=== PATIENT | female | born 1950 | race Caucasian/White ===

== ENCOUNTER 2016-10-30 07:04 | Day surgery (SDC) | payer OTHER, MEDICARE ==
[2016-10-29 11:34] VITALS: BMI 24.1
--- NOTE | 2016-10-29 15:01 | HP ---
- Patient Scheduled date of Surgery: 10/30/16 Scheduled Surgical Procedure: Phacoemulsification and cataract extraction with PCIOL Affected Eye: Left Chief Complaint (Indication for surgery): Decreased vision affecting ADLs - Ocular History Other Eye History: Other (narrow angles, OHTN, ADDIS) Eye Medications: alphagan p 0/2, vigamox 0/3, restasis 2/2, at prn Previous Eye Surgery: s/p LPI OU - Medical History Illnesses: Hypertension, Other (hypothyroid, Ovarian CA s/p [facility]) Current Medications: Ambulatory Orders Calcium Carbonate [Calcium] 500 mg PO DAILY 10/29/16 Cholecalciferol (Vitamin D3) [Vitamin D3 -] 400 unit PO DAILY 10/29/16 Levothyroxine [Synthroid -] 50 mcg PO DAILY 10/29/16 Lisinopril 10 mg PO DAILY 10/29/16 Magnesium Oxide [Magnesium] 500 mg PO DAILY 10/29/16 Ranitidine [Zantac -] 150 mg PO DAILY 10/29/16 Allergies/Adverse Reactions: Allergies Allergy/AdvReac Type Severity Reaction Status Date / Time No Known Allergies Allergy Verified 10/29/16 11:34 Ocular Examination - Best Corrected Visual Acuity Distance: Right eye: 20/20 Distance: Left eye: 20/40 - External/Slit Lamp Examination Abnormalities: PI ou, decreased TBUT ou - Intraocular Pressure Intraocular Pressure - Right eye: 19 Intraocular Pressure-Left eye: 19 - Lens Lens: 2+ ns vacuoles - Vitreous/Retina Vitreous/Retina: c:d 0.25 - Special Examination M - Right eye: +0.75-1.25 x 135 M - Left eye: plano -1.25 x 180 K - Right eye: 45.5/46.5 x 090 K - Left eye: 45.75/46.75 x 090 AL - Right eye: 22.55 AL - Left eye: 22.36 IOL bag: +21.0 d hoya 251 IOL sulcus: +20.0 d hoya 231 IOL AC: +17.50 d mta 4uo - Impression Impression: Cataract Left Eye - Plan Plan: Phacoemulsification and cataract extraction - IOL Left eye (LRI OS) Post-hospital care will be provided in office on: 10/31/16
--- NOTE | 2016-10-29 15:22 | HP ---
History & Physical Update - History History: No Change - Physical Physical: No Change - Assessment Assessment: No Change - Plan Plan: No Change
[~2016-10-30 07:04] MED LIST: ACETAMINOPHEN 325 MG TABLET (FP) PO PRN; CHONDROITIN SU A/HYALUR SOD 1 KIT IO ONE; CIPROFLOXACIN HCL 0.3% OPHTH 2.5ML BOTTLE OP SCH; DICLOFENAC SODIUM 0.1% OPHTHALMIC 2.5ML BOTTLE OP SCH; PHENYLEPHRINE 2.5% OPHTH SOLN 15 ML BOTTLE OP SCH; TOBRAMYCIN/DEXAMETHASONE OPHTH. OINTMENT 1 TUBE TP ONE; TROPICAMIDE 1% OPHTH SOLN 15 ML BOTTLE OP SCH
[2016-10-30] MEDS: CIPROFLOXACIN 0.3% EYE DROPS 5 ML BOTTLE ONE ×3 (07:30→07:47)
[2016-10-30] MEDS: PHENYLEPHRINE 2.5% OPHTH SOLN 15 ML BOTTLE ONE ×3 (07:30→07:48)
[2016-10-30] MEDS: TROPICAMIDE 1% OPHTH SOLN 15 ML BOTTLE ONE ×3 (07:30→07:48)
[2016-10-30] MEDS: DICLOFENAC SODIUM 0.1% OPHTHALMIC 2.5ML BOTTLE ONE ×3 (07:30→07:48)
[2016-10-30 07:52] VITALS: TEMP 97.8
[2016-10-30] MEDS ORDERED: LIDOCAINE HCL 2% JELLY (5 ML/TUBE) TP ONE (08:30)
[2016-10-30] MEDS ORDERED: MIDAZOLAM HCL 2 MG/2 ML SINGLE DOSE VIAL ONE (08:40)
[2016-10-30] MEDS ORDERED: LIDOCAINE HCL 1% PRESERVATIVE FREE - 30ML VIAL IO ONE (08:48)
[2016-10-30] MEDS ORDERED: CHONDROITIN SU A/HYALUR SOD 1 KIT IO ONE ×2 (08:50→09:10)
[2016-10-30] MEDS ORDERED: TOBRAMYCIN/DEXAMETHASONE OPHTH. OINTMENT 1 TUBE TP ONE (09:19)
[2016-10-30] MEDS ORDERED: TOBRAMYCIN/DEXAMETHASONE OPHTH. OINTMENT 1 TUBE ONE (09:26)
[2016-10-30] MEDS ORDERED: EPINEPHrine/PF 1 MG/1 ML (1:1,000) AMPULE ONE (09:29)
[2016-10-30] MEDS ORDERED: LIDOCAINE HCL/PF 1% SDV 5ML VIAL ONE (09:29)
[2016-10-30] MEDS ORDERED: BSS (NA/CA/MG/K) BALANCED SALT SOLUTION OPHTH SOLN 15 ML BOTTLE ONE (09:29)
--- NOTE | 2016-10-30 10:28 | OP ---
Ophthalmology Operative Note Pre-Operative Diagnosis: Cataract Affected Eye: Left Operation: Phacoemulsification and cataract extraction with PCIOL (and LRI superior and inferior over 35 degrees) Findings: cataract Post-Operative Diagnosis: Same as Pre-op Women'S Swim Coach: None Anesthesiologist: Nadya Stoddard Anesthesia: Topical Specimens Removed: none Estimated blood loss: none Drains & Tubes with Location: none Operative Report Dictated: No
[2016-10-30 10:42] VITALS: BP 130/80; PULSE 70
--- NOTE | 2016-10-30 12:56 | OP ---
DATE OF OPERATION: PREOPERATIVE DIAGNOSIS: Cataract left eye. POSTOPERATIVE DIAGNOSIS: Cataract left eye. PROCEDURE: Phacoemulsification and cataract extraction with insertion of posterior chamber intraocular lens left eye using limbal relaxing incisions. SURGEON: Radah Mccray MD DOCKMASTER: None. ANESTHESIA: Topical. ANESTHESIOLOGIST: Nadya CARRANZA OPERATIVE PROCEDURE: Before the patient was brought to the operating room, the 6 o'clock meridian was marked with the patient upright in the holding area. The patient received TetraVisc eye drops and was lightly sedated and prepped and draped in the usual sterile fashion so as to expose only the left eye. Ophthalmic Betadine was instilled into the inferior fornix, and the lashes were taped out of the surgical field. An eyelid speculum was placed into the left eye. A paracentesis was made in inferior clear cornea at the limbus. A dial was placed on the eye to cathy the 12 o'clock meridian and to cathy 17 degrees on each side of the 12 o'clock and 6 o'clock meridians. A Santoro ring was then placed, and a macrina blade was used to create limbal relaxing incisions superiorly and inferiorly approximately 35 degrees centered at the 12 o'clock meridian and the 6 o'clock meridian. Then 0.5 mL of nonpreserved lidocaine was injected into the anterior chamber and viscoelastic material was instilled into the anterior chamber via the paracentesis. A 2.4-mm keratome was then used to create the main incision in temporal clear cornea at the limbus. A continuous curvilinear capsulorrhexis was performed using a cystotome and Utrata forceps. Hyrodissection of the lens cortex was performed using BSS on a cannula until the nucleus was noted to be freely rotating. The phacoemulsification tip was inserted via the main wound and used to sculpt 2 perpendicular grooves into the lens nucleus. The nucleus was cracked into 4 quadrants using 2 instruments. Each quadrant was lifted out of the capsule into the iris plane and individually phacoemulsified. The remaining cortical material was then aspirated using the irrigation and aspiration port. The capsular bag was inflated using Provisc, and a preloaded Hoya lens model 251, power +21.0 diopter was injected into the capsular bag and centered using a Sinskey hook. The residual viscoelastic material was removed from the anterior chamber using irrigation and aspiration. The wound edges were hydrated using BSS. The wound was tested for leakage and found to be watertight. Therefore, Tobradex ointment was placed in the eye, and a speculum was removed from the eye. The eyelid was closed. Sterile dressing and shield were placed over the eye, and the patient was transferred to the recovery room in stable condition and told to follow up in 1 day. ARDHA MCCRAY M.D. [id number]
== END 2016-10-30 10:42 | disposition home or self-care (01) ==
LOC: JASU-SURG 07:04
PROVIDERS: ATTEND Ophthalmology
PROC: 08RK3JZ Replacement of Left Lens with Synthetic Substitute, Percutaneous Approach (ICD-10-PCS; principal; 2016-10-30 08:30)
DX: H26.9 Unspecified cataract (principal)

== ENCOUNTER 2021-11-07 04:20 | Day surgery (SDC) | payer OTHER, BC ==
[2021-11-05 12:21] VITALS: BMI 25.0
[2021-11-07] MEDS ORDERED: TOBRAMYCIN/DEXAMETHASONE OPHTH. OINTMENT 1 TUBE ONE (07:17)
[2021-11-07] MEDS ORDERED: EPINEPHrine/PF 1 MG/1 ML (1:1,000) AMPULE ONE (07:17)
[2021-11-07] MEDS ORDERED: POVIDONE-IODINE 5% OPHTHALMIC PREP 30 ML SOLUTION ONE (07:18)
[2021-11-07] MEDS ORDERED: LIDOCAINE HCL/PF 1% SDV 5ML VIAL ONE (07:18)
[2021-11-07] MEDS ORDERED: TETRACAINE 0.5% OPHTH SOLN 2 ML BOTTLE ONE (07:18)
[2021-11-07] MEDS ORDERED: CIPROFLOXACIN 0.3% EYE DROPS 5 ML BOTTLE ONE (07:24)
[2021-11-07] MEDS ORDERED: PHENYLEPHRINE 2.5% OPTHALMIC DROP BOTTLE ONE (07:24)
[2021-11-07] MEDS ORDERED: KETOROLAC TROMETHAMINE 0.5% EYE DROP 1 DROP DROPS ONE (07:24)
[2021-11-07] MEDS ORDERED: TROPICAMIDE 1% OPHTH SOLN 15 ML BOTTLE ONE (07:24)
[2021-11-07] MEDS ORDERED: ACETAMINOPHEN 325 MG TABLET (FP) PO PRN (07:27)
[2021-11-07] MEDS ORDERED: DICLOFENAC SODIUM 0.1% OPHTHALMIC 2.5ML BOTTLE OP SCH (07:30)
[2021-11-07] MEDS ORDERED: PHENYLEPHRINE 2.5% OPHTH SOLN 15 ML BOTTLE OP SCH (07:30)
[2021-11-07] MEDS ORDERED: CIPROFLOXACIN HCL 0.3% OPHTH 2.5ML BOTTLE OP SCH (07:30)
[2021-11-07] MEDS ORDERED: TROPICAMIDE 1% OPHTH SOLN 15 ML BOTTLE OP SCH (07:30)
[2021-11-07] MEDS ORDERED: DICLOFENAC SODIUM 0.1% OPHTHALMIC 2.5ML BOTTLE OD ONE ×3 (07:50→08:10)
[2021-11-07] MEDS ORDERED: TROPICAMIDE 1% OPHTH SOLN 15 ML BOTTLE OD ONE ×3 (07:50→08:10)
[2021-11-07] MEDS ORDERED: CIPROFLOXACIN HCL 0.3% OPHTH 2.5ML BOTTLE OD ONE ×3 (07:50→08:10)
[2021-11-07] MEDS ORDERED: PHENYLEPHRINE 2.5% OPHTH SOLN 15 ML BOTTLE OD ONE ×3 (07:50→08:10)
[2021-11-07] MEDS ORDERED: MIDAZOLAM HCL 2 MG/2 ML SINGLE DOSE VIAL ONE (10:17)
[2021-11-07] MEDS ORDERED: TETRACAINE 0.5% OPHTH SOLN 2 ML BOTTLE OD ONE (10:17)
[2021-11-07] MEDS ORDERED: POVIDONE-IODINE 5% OPHTHALMIC PREP 30 ML SOLUTION OD ONE (10:19)
[2021-11-07] MEDS ORDERED: BSS (NA/CA/MG/K) BALANCED SALT SOLUTION OPHTH SOLN 15 ML BOTTLE IO ONE (10:26)
[2021-11-07] MEDS ORDERED: LIDOCAINE HCL 1% PRESERVATIVE FREE - 30ML VIAL IO ONE (10:30)
[2021-11-07] MEDS ORDERED: CHONDROITIN SU A/HYALUR SOD 1 KIT IO ONE (10:30)
[2021-11-07] MEDS ORDERED: EPINEPHrine/PF 1 MG/1 ML (1:1,000) AMPULE SQ ONE (10:38)
[2021-11-07] MEDS ORDERED: TOBRAMYCIN/DEXAMETHASONE OPHTH. OINTMENT 1 TUBE OD ONE (10:57)
[2021-11-07 11:10] VITALS: TEMP 98.7
[2021-11-07 12:15] VITALS: BP 139/70; PULSE 67
== END 2021-11-07 12:04 | disposition home or self-care (01) ==
LOC: JASU-SURG 04:20
PROVIDERS: ATTEND Ophthalmology
PROC: 08RJ3JZ Replacement of Right Lens with Synthetic Substitute, Percutaneous Approach (ICD-10-PCS; principal; 2021-11-07 09:30)
DX: H26.9 Unspecified cataract (principal)